=== PATIENT | female | born 1965 | race Caucasian/White ===

== ENCOUNTER 2019-09-04 14:34 | Emergency (ER) | payer BC ==
[~2019-09-04] VITALS: Ht 162.6 cm; Wt 68.0 kg
[~2019-09-04 14:34] MED LIST: ALBU90I INH; AMOX500 PO; CODACE30 PO; Crutch1 EACH MISC; HYDR1TAB94 PO; IBUP800 PO; PRED20 PO; PROM25 PO; [UNRECOGNIZED DRUG - OTHER]; [UNRECOGNIZED DRUG - OTHER]
[2019-09-04] MEDS ORDERED: ALLERGY MED (14:47)
== END 2019-09-04 17:41 | disposition home or self-care (01) ==
LOC: ER 14:34
DX: S00.03XA Contusion of scalp, initial encounter (principal); Z91.048 Other nonmedicinal substance allergy status; Z23 Encounter for immunization; W22.8XXA Striking against or struck by other objects, initial encounter
CPT/HCPCS: 70450; 90471; 90714; 99283-25

== ENCOUNTER → 2022-10-27 | Outpatient (CLI) | payer OTHER ==
[~2022-10-27] MED LIST changes: +ALLERGY MED
[2022-10-27 18:26] LABS: Source, Urine Voided
[2022-10-27 19:07] LABS: Bacteria Many /hpf; Squamous Epithelial Cells Few /hpf (Few); White Blood Cells, Urine 0-2 /hpf (0-5)
[2022-10-27 19:11] LABS: BASOPHILS ABSOLUTE AUTO 0.05 K/mm3 (0.00-0.23); BASOPHILS PERCENT AUTO 1 % (0-2); EOSINOPHILS ABSOLUTE AUTO 0.15 K/mm3 (0.00-0.68); EOSINOPHILS PERCENT AUTO 3 % (0-6); Hematocrit 39.4 % (33.0-51.0); Hemoglobin 13.2 g/dL (11.5-16.0); IMMATURE GRAN ABSOLUTE AUTO 0.01 K/mm3 (0.00-0.10); IMMATURE GRAN PERCENT AUTO 0 % (0-1); LYMPHOCYTES ABSOLUTE AUTO 1.95 K/mm3 (0.84-5.20); LYMPHOCYTES PERCENT AUTO 34 % (21-46); MONOCYTES ABSOLUTE AUTO 0.38 K/mm3 (0.16-1.47); MONOCYTES PERCENT AUTO 7 % (4-13); Mean Corpuscular HGB 28.1 pg (26.0-34.0); Mean Corpuscular HGB Conc 33.5 g/dL (31.5-36.5); Mean Corpuscular Volume 84 fL (80-100); Mean Platelet Volume 9.9 fL (9.1-12.4); NEUTROPHILS ABSOLUTE AUTO 3.16 K/mm3 (1.96-9.15); NEUTROPHILS PERCENT AUTO 55 % (41-73); Platelet Count 242 K/mm3 (150-400); RDW Coefficient Variation 12.7 % (11.7-14.2); RDW Standard Deviation 38.5 fL (35.1-46.3); Red Blood Cell Count 4.69 M/mm3 (3.80-5.20)
[2022-10-27 19:40] LABS: Albumin, Blood 3.9 g/dL (3.4-5.0); Albumin/Globulin Ratio 0.9 (0.8-1.8); Bilirubin, Total 0.3 mg/dL (0.1-1.0); Calcium, Blood 9.6 mg/dL (8.5-10.1); Creatinine, Blood 0.7 mg/dL (0.40-1.00); Globulin, Blood 4.4 g/dL (2.2-4.0); Potassium, Blood 4.1 mmol/L (3.5-5.5); Thyroid Stimulating Hormone 1.54 uIU/mL (0.360-4.800); Total Protein, Blood 8.3 g/dL (6.4-8.2)
== END | disposition home or self-care (01) ==
LOC: LAB SHORT 15:35 → LAB 15:35
PROVIDERS: Family Medicine
DX: N39.3 Stress incontinence (female) (male) (principal); R30.0 Dysuria; R53.83 Other fatigue
CPT/HCPCS: 80053; 81015; 83036; 84443; 85025; 87086

== ENCOUNTER 2023-08-14 13:04 | Emergency (ER) | payer OTHER ==
[~2023-08-14] VITALS: Ht 162.6 cm; Wt 69.0 kg
[2023-08-14 13:21] VITALS: BP 129/89
== END 2023-08-14 15:22 | disposition home or self-care (01) ==
LOC: ER 13:04
DX: M19.071 Primary osteoarthritis, right ankle and foot (principal); Z91.048 Other nonmedicinal substance allergy status
CPT/HCPCS: 73630; 99283-25

== ENCOUNTER 2025-01-27 13:58 | Emergency (ER) | payer OTHER ==
[~2025-01-27] VITALS: Ht 162.6 cm; Wt 69.0 kg
[2025-01-27 14:19] VITALS: BP 133/87
== END 2025-01-27 16:56 | disposition home or self-care (01) ==
LOC: ER 13:58
DX: M79.674 Pain in right toe(s) (principal); Z91.048 Other nonmedicinal substance allergy status
CPT/HCPCS: 73630; 99283-25